=== PATIENT | female | born 1980 | race Caucasian/White ===

== ENCOUNTER 2017-03-09 23:34 | Emergency (ER) | payer OTHER ==
[~2017-03-09] VITALS: Ht 167.6 cm; Wt 106.0 kg
[2017-03-09 23:38] VITALS: BP 129/72; PULSE 75; RESP 18; TEMP 98.3; O2SAT 98
[2017-03-09] MEDS ORDERED: TRINTAB7 PO (23:51)
--- NOTE | 2017-03-09 23:53 | PD ---
HPI Chief Complaint: ENT Complaint Time Seen by Provider: 23:48 Travel History International Travel<30 days: No Contact w/Intl Traveler<30days: No Traveled to known affect area: No History of Present Illness HPI 36-year-old female presents to the emergency department by private transportation for complaint of one day of sore throat. Pain is 1-2/10 in intensity at rest when not swallowing and increases to 4/10 intensity when she swallows. Patient is taking cough drops for her throat pain. Patient also complains of mild right ear pain. Patient denies any sinus pressure or drainage. No neck pain no cough shortness of breath pleuritic pain no nausea or vomiting or abdominal pain no diarrhea. Patient denies any dysuria frequency urgency or flank pain. Patient states that she has not attempted to use any acetaminophen or ibuprofen for pain relief that she did not have fever so did not feel she needed to take these medications. Patient takes no chronic prescription medications For control pills and denies . Patient states that's school has started back and she's been exposed to multiple persons and does not know if she has been exposed to respiratory illness. Patient denies other concerns or complaints. PFSH Past Medical History Narrative Medical cholecystectomy Ab0; no tobacco use; nursing notes reviewed ?: Not Social History Tobacco Use: No Allergies-Medications (Allergen,Severity, Reaction): Coded Allergies: Sulfa (Sulfonamide Antibiotics) (Verified Allergy, Severe, Anaphylaxis, ) Reported Meds & Prescriptions Reported Meds & Active Scripts Active Reported Trinessa (Norgestimate-Ethinyl Estradiol) 0.18/0.215/0.25 mg-35 Mcg Tab 1 Tab PO DAILY Narrative Medication control pills Review of Systems Except as stated in HPI: all other systems reviewed are Neg General / Constitutional: No: Fever, Chills HENT: Positive: Sore Throat, No: Congestion Cardiovascular: No: Chest Pain or Discomfort Respiratory: No: Cough, Shortness of Breath Gastrointestinal: No: Nausea, Vomiting, Diarrhea, Abdominal Pain Genitourinary: No: Dysuria Musculoskeletal: No: Myalgias, Arthralgias, Pain Skin: No Rash Neurologic: No: Weakness, Dizziness Psychiatric: No: Anxiety Hematologic/Lymphatic: No: Lymph Node Enlargement Physical Exam Narrative GENERAL: Well-developed well-nourished female in no acute distress no respiratory distress; no stridor or hoarseness. SKIN: Warm and dry. HEAD: Normocephalic. EYES: No scleral icterus. No injection or drainage. ENT: Mucous membranes moist airway is patent mild erythema no edema no exudative change. Tympanic membranes no redness no dullness no loss of landmarks no perforation bilaterally. NECK: Supple, trachea midline. No JVD or lymphadenopathy. Supple no meningismus no nuchal rigidity. CARDIOVASCULAR: Regular rate and rhythm without murmurs, gallops, or rubs. RESPIRATORY: Breath sounds equal bilaterally. No accessory muscle use. GASTROINTESTINAL: Abdomen soft, non-tender, nondistended. MUSCULOSKELETAL: No cyanosis, or edema. BACK: Nontender without obvious deformity. No CVA tenderness. Data Data Last Documented VS Vital Signs Date Time Temp Pulse Resp B/P Pulse Ox O2 Delivery O2 Flow Rate FiO2 03/09/17 23:45 75 16 03/09/17 23:38 98.3 129/72 98 Orders Group A Rapid Strep Screen (03/09/17 23:48) Strep Culture (Group A) (03/10/17 00:00) [facility] Medical Decision Making Medical Screen Exam Complete: Yes Emergency Medical Condition: Yes Medical Record Reviewed: Yes Interpretation(s) RSA: negative Differential Diagnosis Sore throat, pharyngitis, URI, viral syndrome Narrative Course Rapid strep antigen specimen collected and sent for resulting At 12:34 AM patient informed of negative rapid strep test and stable for outpatient management Diagnosis Primary Impression: Sore throat Referrals: Primary Care Physician call for appointment Patient Instructions: General Instructions Additional Instructions: Increase fluid hydration Take acetaminophen/Tylenol every 4 hours as needed for fever 100.4F or greater or for minor pain Take as tolerated ibuprofen/Advil/Motrin 800 mg maybe taken as often as every 8 hours for pain associated with inflammation or for fever 100.4F or greater Use warm saltwater gargles lozenges and Chloraseptic spray as needed for symptomatic relief of throat pain Return to the emergency department for any concerns or change in condition Follow-up with your primary care provider Med/Other Pt SpecificInfo: No Change to Meds Disposition: 01 DISCHARGE HOME Condition: Stable Alma Apple MD Mar 09, 2017 23:53
[2017-03-10 00:50] VITALS: BP 117/70
== END 2017-03-10 00:53 | disposition home or self-care (01) ==
LOC: PHED 23:34
DX: R07.0 Pain in throat (principal); H92.01 Otalgia, right ear
CPT/HCPCS: 87081; 87880; 99283